=== PATIENT | female | born 1985 ===

== ENCOUNTER 2021-09-02 14:47 | Emergency (ER) | payer SELFPAY ==
[~2021-09-02] VITALS: Ht 157.5 cm; Wt 90.7 kg
[2021-09-02 14:54] VITALS: BP 147/80
== END 2021-09-02 17:12 | disposition home or self-care (01) ==
LOC: ER 14:47
DX: T20.27XA Burn of second degree of neck, initial encounter (principal); T22.20XA Burn of second degree of shoulder and upper limb, except wrist and hand, unspecified site, initial encounter; X12.XXXA Contact with other hot fluids, initial encounter; Y93.89 Activity, other specified; Y92.89 Other specified places as the place of occurrence of the external cause; Y99.8 Other external cause status